=== PATIENT | male | born 1980 | race Two or more races ===

== ENCOUNTER 2023-12-30 03:06 | Emergency (ER) | payer OTHER ==
[~2023-12-30] VITALS: Ht 177.8 cm; Wt 79.4 kg
[2023-12-30] MEDS ORDERED: BUPRENORPHINE HCL 8 MG TAB.SUBL SL ONE (03:56)
[2023-12-30] MEDS ORDERED: ONDANSETRON 4 MG TAB.RAPDIS ONE (04:00)
[2023-12-30] MEDS: BUPRENORPHINE HCL 8 MG TAB.SUBL SL ONE (04:00)
[2023-12-30] MEDS: ONDANSETRON 4 MG TAB.RAPDIS SL ONE (04:03)
[2023-12-30] MEDS ORDERED: BUPR1FIL3 SL (04:20)
[2023-12-30 05:04] VITALS: BP 141/99; TEMP 98.5; O2SAT 98
== END 2023-12-30 05:04 ==
LOC: ER 03:08
DX: F11.93 Opioid use, unspecified with withdrawal (principal)
CPT/HCPCS: 99283; Q0162